=== PATIENT | female | born 1995 | race Caucasian/White ===

== ENCOUNTER 2018-03-18 07:28 | Inpatient (IN) ==
[2018-03-18] MEDS ORDERED: Naloxone 0.4 MG/ML INJ IVP PRN (07:43)
[2018-03-18] MEDS ORDERED: Famotidine 20 MG/2 ML VIAL IVP PRN (07:43)
[2018-03-18] MEDS ORDERED: *HR* Nalbuphine 10 MG/ML AMPUL IVP PRN (07:43)
[2018-03-18] MEDS ORDERED: Metoclopramide 10 MG/2 ML VIAL IVP PRN (07:43)
[2018-03-18] MEDS ORDERED: Ondansetron 4 MG/2 ML VIAL IVP PRN (07:43)
[2018-03-18] MEDS ORDERED: Ringers Solution, Lactated 1,000 ML IVC SCH (07:45)
[2018-03-18] MEDS ORDERED: Oxytocin 20 units/ LR 1000 mL 20 UNIT/1,000 ML BAG IVC SCH ×2 (08:30→16:12)
[2018-03-18 08:32] LABS: Basophils % 0.3 %; Eosinophils # 0.1 K/mcL (0.0-0.6); Eosinophils % 1.1 %; Hematocrit 35.8 % (35.3-44.9); Hemoglobin 12.7 g/dL (11.5-15.4); Immature Granulocytes % 1.1 % (0-4); Lymphocytes # 1.3 K/mcL (0.6-4.6); Lymphocytes % 16.2 %; Mean Corpuscular HGB Conc 35.5 g/dL (31.6-35.5); Mean Corpuscular Hemoglobin 31.4 pg (28.0-33.3); Mean Corpuscular Volume 88.6 fL (83.0-100.0); Mean Platelet Volume 10.5 fL (9.4-12.4); Monocytes # 0.7 K/mcL (0.0-1.3); Monocytes % 9.1 %; Neutrophils # 5.7 K/mcL (1.6-8.9); Platelet Count 151 K/mcL (140-400); Red Blood Count 4.04 M/mcL (3.82-4.97); Red Cell Distribution Width 12.5 % (11.5-14.5); Segmented Neutrophils % 72.2 %
[2018-03-18 08:41] LABS: Amphetamine Screen,Urine Negative ng/mL (Cutoff=1000); Barbiturate Screen,Urine Negative ng/mL (Cutoff=200); Benzodiazepines Screen,Urine Negative ng/mL (Cutoff=200); Cannabinoid Screen,Urine Positive ng/mL (Cutoff = 50); Cocaine Screen,Urine Negative ng/mL (Cutoff= 300); Opiate Screen,Urine Negative ng/mL (Cutoff=300); Phencyclidine Screen,Urine Negative ng/mL (Cutoff=25)
[2018-03-18] MEDS ORDERED: *HR* FentaNYL (PF) 100 MCG/2 ML VIAL EP ONE (08:41)
[2018-03-18] MEDS ORDERED: Bupivacaine-MPF 0.25% 10 ML VIAL EP ONE (08:41)
[2018-03-18] MEDS ORDERED: Epidural Premix (fent/bupiv) 110 ML EP SCH (08:45)
--- NOTE | 2018-03-18 08:45 | Anesthesia Evaluation PreOp ---
Date of Encounter: 03/18/18 Time of Encounter: 08:43 - Past History Planned Operation: WILMER Cardiac History: Denies any Significant Hx Pulmonary History: Smoker, Pack/yr (8) SURFACE SUPPLY BREATHING APPARATUS History: Denies Any Significant HX Other Medical History: Denies Any Significant HX Anesthesia History: No Prior Anesthetic Complications (previous WILMER x 1 w/out complications; never had any procedure requiring GA; Denies family h/o GA compications) : Yes Alcohol Use: none Drug use: none Medications and Allergies 3 Allergy/AdvReac Type Severity Reaction Status Date / Time Penicillins [PCN] Allergy Rash Verified 03/13/15 15:30 - Meds/Allergy Pre-op Review Medications Reviewed: Yes Allergies Reviewed: Yes Beta Blockers on Current Med List: No Anesthesia Results - Labs 03/18/18 07:45 Anesthesia Exam 124/78, HR 104 O2 Sat Height 1.68 m Weight 84.822 kg NPO (# of Hours): solids > 8hrs Pain Scale: 7 Pain Scale Used: Numeric (1 - 10) - HEENT Pupil (Motor): Pupils equal Mallampati: III Teeth: Normal Oral Opening: Greater than 3 - SURFACE SUPPLY BREATHING APPARATUS LOC: Oriented SURFACE SUPPLY BREATHING APPARATUS Motor: Normal RUE, Normal LUE, Normal RLE, Normal LLE, Normal Face SURFACE SUPPLY BREATHING APPARATUS Sensory: Normal: RUE, LUE, RLE, LLE, Face - Cardiac Rhythm: Regular Murmur: None - Pulmonary Breath Sounds: bilateral Clear Respiratory Effort: Symmetrical Anesthesia Assess/Plan ASA Score: 2 Modified [place] Scale for Level of Consciousness: Cooperative, oriented, and tranquil Anesthetic Plan: Regional Autologous Blood: No Recovery Plan: Other
[2018-03-18] MEDS ORDERED: Bupivacaine-MPF 0.25% 10 ML VIAL ONE (08:48)
[2018-03-18] MEDS ORDERED: Lidocaine -MPF 1% 5 ML AMPUL ONE (08:48)
[2018-03-18] MEDS ORDERED: *HR* FentaNYL (PF) 100 MCG/2 ML VIAL ONE (08:49)
--- NOTE | 2018-03-18 11:00 | Anesthesia Procedures ---
Date of Encounter: 03/18/18 Time of Encounter: 10:35 Procedures: Anesthesia - Epidural/Spinal Patient ID/Chart reviewed: Yes Patient examined: Yes OB Eval: Gestational age: 39 weeks 6 days OB Eval: : 2 OB Eval: Hx Para: 1 OB Eval: Dilated at (cm): 4 OB Eval: Contractions: Non-stressed pattern Consent Obtained: Yes Supplemental Oxygen: None/Room Air Site Prep: Aseptic Technique, Sterile prep and drape, Povidone-Iodine 1% Patient position: upright Local Anesthetic: Lidocaine 1% Amount of Local Anesthetic used: 3 Touhy Needle Gauge: 18 Touhy Needle Depth (cm): 6 Catheter Depth at Skin (cm): 11 Test Dose (1.5% Lido + Epi): Volume given (mls): 5 Test Dose Result: Negative Loading Dose: 0.25% Marcaine (mls): 5 Loading Dose: Fentanyl (mcg): 100 Loading Dose Administered: Thru Catheter Infusion Med: 0.125% Bupivacaine w/ 2 mcg/ml Fentanyl Infusion Rate (mls/hr): 14 (w/ demand bolus of 5mL q30min PRN) Catheter Secured in Place: Tegaderm, Tape Interspace Used: L4-L5 Loss of Resistance (NEYMAR): Yes Blood: No CSF: No Paresthesia: No Procedure: successful on 1st attempt; patient tolerated procedure well. VSS Vitals + FHT's: Please see Avril Plascencia RN's electronic records for vital sign entry
--- NOTE | 2018-03-18 14:00 | OB/GYN Procedure Note ---
Delivery - Delivery Date: 03/18/18 Provider: Gennaro Leung Intrapartum events: none Delivery induction: none Delivery augmentation: pitocin Delivery monitor: external FHT, external uterine Anesthesia: epidural Quantitated Blood Loss: 300 - (s) Infant A Delivery Date: 03/18/18 Infant Delivery Time: 13:42 Presentation: vertex Position: OA Route of delivery: Gender: Male Viability: Viable Pounds: 8 Ounces: 12 Weight Gram: 3.96 kg at 1 minute: 5 at 5 mins: 7 Shoulder Dystocia: encountered Shoulder Dystocia Maneuvers: Sana maneuver, suprapubic pressure, Rae maneuver Shoulder dystocia time elapsed: 2 min Specimens collected: cord blood, venous cord gases, arterial cord gases Placenta: spontaneous Cord: nuchal cord, nuchal reduced - Repair Laceration Description: None - Disposition Mom disposition: stable in LDR [place] disposition: taken to nursery - Comments Comments: Sarina is a 22-year-old female who presented to labor and delivery with spontaneous rupture membranes at 39+ weeks. She progressed to complete and pushing. Infant's head descended rapidly. We then had a shoulder dystocia with the consented occipitoanterior presentation. There was a cord around the neck 1 which is easily reduced. Nursing was notified of shoulder dystocia. Immediately patient was placed in Sana maneuver and suprapubic pressure was applied. Infant did not reduce with this. This was tried twice. At this point I tried a Hever maneuver releasing the superior shoulder. It did not release. I then went after the posterior arm. I was able to reduce the shoulder which relieved the pressure on the anterior shoulder allowing me to deliver the baby. NICU team had been called to delivery when shoulder dystocia was noted. Interval time was 2 minutes from noting the dystocia until delivery. Cord was clamped and cut with delivery of infant. was responding at this point and placed on the bassinet with NICU team. Baby did cry at this point. Cord blood and gases were obtained. Placenta was delivered spontaneously intact. There were no cervical, vaginal, periurethral or perineal lacerations noted. Patient delivered a male weight was 8 lbs. 12 oz. 3960 g. Apgars were 5 at 1 minute and 7 at 5 minutes. Estimated blood loss 300 mL.
--- NOTE | 2018-03-18 14:07 | History & Physical Report ---
Date of Encounter: 03/18/18 Time of Encounter: 14:06 24 Hour HP Update - Instructions Instructions: If the History and Physical is less than 30 days old and was completed prior to A.M. admission and or procedure and has NOT been updated on calendar day of procedure please complete this update prior to performing procedure. - Update Patient reports changes in Medical Condition: No Changes in examination, assessment, or condition: No Changes in Medication: No Surgery Remains Indicated: No Consent for Planned Operative Procedure(s) Verified: No - Pre-Operative Checklist Preoperative Checklist Indicated: No Prophylactic Antibiotic Ordered: No Home Medications Include Beta Vickie: No Beta Vickie Taken Today (Day of Surgery): No Beta Vickie Taken Yesterday (Day Prior to Surgery): No Is VTE Prophylaxis Indicated?: NO - Attending Attestation Patient presented with spontaneous rupture of membranes. No change in patient' s history of physical has occurred since her visit in the office on Sunday.
[2018-03-18] MEDS ORDERED: Ibuprofen 600 MG TABLET PO PRN (16:12)
[2018-03-18] MEDS ORDERED: Acetaminophen 325 MG TABLET PO PRN (16:12)
[2018-03-18] MEDS ORDERED: Measles/Mumps/Rubella Vacc 0.5 ML VIAL SQ PRN (16:12)
[2018-03-19 06:03] LABS: Basophils % 0.3 %; Eosinophils # 0.1 K/mcL (0.0-0.6); Eosinophils % 0.5 %; Hematocrit 32.3 % (35.3-44.9); Hemoglobin 11.3 g/dL (11.5-15.4); Immature Granulocytes % 0.9 % (0-4); Lymphocytes # 1.3 K/mcL (0.6-4.6); Lymphocytes % 12.7 %; Mean Corpuscular Hemoglobin 30.9 pg (28.0-33.3); Mean Corpuscular Volume 88.3 fL (83.0-100.0); Mean Platelet Volume 10.1 fL (9.4-12.4); Monocytes # 0.8 K/mcL (0.0-1.3); Monocytes % 7.5 %; Neutrophils # 8.2 K/mcL (1.6-8.9); Platelet Count 128 K/mcL (140-400); Red Blood Count 3.66 M/mcL (3.82-4.97); Red Cell Distribution Width 12.5 % (11.5-14.5); Segmented Neutrophils % 78.1 %
--- NOTE | 2018-03-19 07:02 | OB/GYN Progress Note ---
Date of Encounter: 03/19/18 Time of Encounter: 07:00 - Assessment and Plan (1) 39 weeks gestation of Current Visit: Yes Status: Acute (2) Shoulder dystocia, delivered, current hospitalization Current Visit: Yes Status: Acute (3) (spontaneous vaginal delivery) Current Visit: No Status: Acute Subjective - Subjective Principal diagnosis: s/p Interval history: Sarina is a 22-year-old female who presented with spontaneous rupture membranes. This patient progressed pushing had a 2 minute shoulder dystocia. For was delivered following the protocols for delivery of shoulder dystocia. Infant doing well today. Had Apgars of 5 at 1 minute 7 at 5 minutes. Today baby in room with mother doing well. Nursing discussing him going home after 24 hours. Baby is nursing well. Mom feeling great today. No complaints of any kind. Wishes to go home today. Patient reports: appetite normal, voiding normally, pain well controlled, ambulating normally : doing well Objective - Latest Vital Signs Latest vital signs: Vital Signs Temp Pulse Resp BP Pulse Ox 03/19/18 03:05 98.6 F 97 16 124/84 96 03/18/18 20:05 98.5 F 89 14 125/83 97 03/18/18 18:03 98.4 F 81 17 122/73 98 03/18/18 17:00 98.5 F 79 18 121/77 97 03/18/18 16:03 97.8 F 92 16 119/74 96 Intake and Output 03/18/18 03/18/18 03/19/18 15:59 23:59 07:59 Intake Total 200 / 200 Output Total 550 / 550 1500 / 1500 Balance -350 / -350 -1500 / -1500 Intake: Oral 200 / 200 Output: Urine 550 / 550 1500 / 1500 Other: Meal Dinner Percent of Meal Consumed 50% Weight 81.8 kg - Exam Lungs: bilateral: normal Extremities: Present: normal Abdomen: Present: normal appearance, soft Uterus Position: 3 Fingers Below Umbilicus - Labs Labs: Laboratory Results - last 24 hr 03/18/18 03/18/18 03/19/18 07:45 07:45 05:42 WBC 7.9 10.5 RBC 4.04 3.66 L Hgb 12.7 11.3 L Hct 35.8 32.3 L MCV 88.6 88.3 MCH 31.4 30.9 MCHC 35.5 35.0 RDW 12.5 12.5 Plt Count 151 128 L MPV 10.5 10.1 Immature Gran % 1.1 0.9 Seg Neutrophils % 72.2 78.1 Lymphocytes % 16.2 12.7 Monocytes % 9.1 7.5 Eosinophils % 1.1 0.5 Basophils % 0.3 0.3 Neutrophils # 5.7 8.2 Lymphocytes # 1.3 1.3 Monocytes # 0.7 0.8 Eosinophils # 0.1 0.1 Basophils # 0.0 0.0 Urine Opiates Screen Negative Ur Barbiturates Screen Negative Ur Phencyclidine Scrn Negative Ur Amphetamines Screen Negative U Benzodiazepines Scrn Negative Urine Cocaine Screen Negative U Marijuana (THC) Screen Positive H Ur Drug Screen Interp See Below
--- NOTE | 2018-03-19 07:23 | OB/GYN History & Physical ---
Date of Encounter: 03/18/18 Time of Encounter: 08:00 Assessment and Plan (1) 39 weeks gestation of Current visit: Yes Status: Acute (2) Shoulder dystocia, delivered, current hospitalization Current visit: Yes Status: Acute (3) (spontaneous vaginal delivery) Current visit: No Status: Acute History of Present Illness Chief complaint: in labor HPI: Ms. Pressley is a 22 year old female who presents to labor and delivery with spontaneous rupture membranes at 39 weeks. She did not scheduled for induction of labor. Patient presented bharat. She is 3 cm upon presentation. She denies any complaints of any kind today. She denies any problems her breasts. She denies gynecologic infection or discharge. She is having no bleeding. She is having no problems with her bowels or bladder. She has allergies to penicillin. Current medications include vitamins. She has no chronic medical conditions. Surgical history is negative. She has no history of abnormal Pap smears, STDs or pelvic infections. She has no history of abnormal breast findings. Socially she smokes half a pack a day. She denies alcohol or illicit drug use. Family history significant for mother diabetes and hypertension; great grandmother with breast cancer. Obstetric history significant for one term vaginal delivery uncomplicated. Past Med Surg Social Fam HX - Past Medical History Medical history: no medical history, thyroid disease Additional medical history: DRUG ABUSE, OVERDOSE, ANXIETY, CHILD , Psychiatric history: anxiety, depression - Past Surgical History Surgical History: no surgical history - Social History Smoking Status: Current every day smoker Smokeless Tobacco Status: No Alcohol use: none Drug use: none - Family History Mother Name: Carlene Rodrigues Living Status: Still Living Hx Family Endocrine Disorder: Yes (DM) Obstetrical History - Pregnancies : 2 Para: 1 Medications and Allergies 3 Allergy/AdvReac Type Severity Reaction Status Date / Time Penicillins [PCN] Allergy Rash Verified 03/13/15 15:30 Exam - Vital Signs Vital signs: Initial Vital Signs Temp Pulse Resp BP Pulse Ox 97.8 F 92 16 119/74 96 03/18/18 16:03 03/18/18 16:03 03/18/18 16:03 03/18/18 16:03 03/18/18 16:03 - Constitutional Constitutional: well developed, well nourished, no acute distress, average body habitus - HEENT HEENT: PERRL - Neck Neck exam: full ROM - Lungs Respiratory exam: CTAB - Cardiovascular Cardiovascular exam: RRR - Abdomen Abdomen: Present: bowel sounds normal, gravid, non tender - Extremities Extremities exam: full ROM, normal capillary refill, normal inspection - Vagina Vagina: Present: normal moisture - Uterus Uterus exam: Present: normal size Results Result Diagrams: 03/19/18 05:42 Abnormal lab results RBC 3.66 M/mcL (3.82-4.97) L 03/19/18 05:42 Hgb 11.3 g/dL (11.5-15.4) L 03/19/18 05:42 Hct 32.3 % (35.3-44.9) L 03/19/18 05:42 Plt Count 128 K/mcL (140-400) L 03/19/18 05:42 U Marijuana (THC) Screen Positive ng/mL (Cutoff = 50) H 03/18/18 07:45 All other labs normal. - VTE Reasons for not Prescribing Prophylaxis: Treatment not Indicated - Low risk for VTE
--- NOTE | 2018-03-19 07:26 | Discharge Summary ---
Date of Encounter: 03/19/18 Time of Encounter: 07:10 - Discharge Diagnosis (1) 39 weeks gestation of Priority: Secondary Status: Acute (2) Shoulder dystocia, delivered, current hospitalization Priority: Secondary Status: Acute (3) (spontaneous vaginal delivery) Priority: Primary Status: Acute - Discharge Medications Allergies/Adverse Reactions: 3 Allergy/AdvReac Type Severity Reaction Status Date / Time Penicillins [PCN] Allergy Rash Verified 03/13/15 15:30 Data Procedures and tests throughout hospitalization: Laboratory Tests 03/18/18 03/18/18 03/19/18 07:45 07:45 05:42 WBC 7.9 10.5 RBC 4.04 3.66 L Hgb 12.7 11.3 L Hct 35.8 32.3 L MCV 88.6 88.3 MCH 31.4 30.9 MCHC 35.5 35.0 RDW 12.5 12.5 Plt Count 151 128 L MPV 10.5 10.1 Immature Gran % 1.1 0.9 Seg Neutrophils % 72.2 78.1 Lymphocytes % 16.2 12.7 Monocytes % 9.1 7.5 Eosinophils % 1.1 0.5 Basophils % 0.3 0.3 Neutrophils # 5.7 8.2 Lymphocytes # 1.3 1.3 Monocytes # 0.7 0.8 Eosinophils # 0.1 0.1 Basophils # 0.0 0.0 Urine Opiates Screen Negative Ur Barbiturates Screen Negative Ur Phencyclidine Scrn Negative Ur Amphetamines Screen Negative U Benzodiazepines Scrn Negative Urine Cocaine Screen Negative U Marijuana (THC) Screen Positive H Ur Drug Screen Interp See Below Labs on day of discharge: Labs from last 24 hours 03/19/18 03/18/18 03/18/18 05:42 07:45 07:45 WBC 10.5 7.9 RBC 3.66 L 4.04 Hgb 11.3 L 12.7 Hct 32.3 L 35.8 MCV 88.3 88.6 MCH 30.9 31.4 MCHC 35.0 35.5 RDW 12.5 12.5 Plt Count 128 L 151 MPV 10.1 10.5 Immature Gran % 0.9 1.1 Seg Neutrophils % 78.1 72.2 Lymphocytes % 12.7 16.2 Monocytes % 7.5 9.1 Eosinophils % 0.5 1.1 Basophils % 0.3 0.3 Neutrophils # 8.2 5.7 Lymphocytes # 1.3 1.3 Monocytes # 0.8 0.7 Eosinophils # 0.1 0.1 Basophils # 0.0 0.0 Urine Opiates Screen Negative Ur Barbiturates Screen Negative Ur Phencyclidine Scrn Negative Ur Amphetamines Screen Negative U Benzodiazepines Scrn Negative Urine Cocaine Screen Negative U Marijuana (THC) Screen Positive H Ur Drug Screen Interp See Below Date of admission: 03/18/18 07:28 Primary care physician: PCP NONE Consults: 03/18/18 16:12 Consult to Machine Icer [CONS] Routine Comment: Vaginal delivery, consult needed Discharging clinician: Gennaro Leung - Patient Status Disposition: Home, Self-Care Condition: Good Functional capacity at discharge: independent ambulation Overall status at discharge: patient is back to baseline - Discharge Instructions Follow Up With: NONE,PCP [Primary Care Provider] - - Diet and Activity Activity: increase activity as tolerated Diet: advance to your usual diet 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 Time spent discussing smoking cessation with patient: more than 10 minutes Time Attestation: Total time spent providing and/or coordinating discharge services: Exam - Constitutional Vitals: Temp Pulse Resp BP Pulse Ox 98.6 F 97 16 124/84 96 03/19/18 03:05 03/19/18 03:05 03/19/18 03:05 03/19/18 03:05 03/19/18 03:05 General appearance IM: A&O X 3 - Respiratory Respiratory exam: Present: CTAB - Cardiovascular Cardiovascular exam IM: Present: RRR - GI/Abdominal GI/Abdominal exam IM: no peritoneal signs - Rectal Rectal exam: deferred - External exam: normal external exam Uterus Position: 3 Fingers Below Umbilicus - Extremities Exam Extremities exam IM: Present: full ROM, normal capillary refill - VTE Reasons for not Prescribing Prophylaxis: Treatment not Indicated - Low risk for VTE
[2018-03-19 07:58] VITALS: BP 111/72
[2018-03-19] MEDS ORDERED: Prenatal Vit/FA 1 EACH TABLET PO SCH (09:00)
== END 2018-03-19 10:00 | disposition home or self-care (01) | DRG 560 ==
LOC: 1NENULAB 07:28 → 1NENUOBS 16:03
PROVIDERS: ADMIT Obstetrics & Gynecology; ATTEND Obstetrics & Gynecology

== ENCOUNTER 2020-05-24 04:00 | Inpatient (IN) ==
[2020-05-24] MEDS ORDERED: *HR* FentaNYL (PF) 100 MCG/2 ML VIAL IVP PRN (04:19)
[2020-05-24] MEDS ORDERED: Metoclopramide 10 MG/2 ML VIAL IVP PRN (04:19)
[2020-05-24] MEDS ORDERED: Lidocaine 1% 20 ML MDV INFILT PRN (04:19)
[2020-05-24] MEDS ORDERED: Naloxone 0.4 MG/ML INJ IVP PRN (04:19)
[2020-05-24] MEDS ORDERED: Ondansetron 4 MG/2 ML VIAL IVP PRN (04:19)
[2020-05-24] MEDS ORDERED: Famotidine 20 MG/2 ML VIAL IVP PRN (04:19)
[2020-05-24] MEDS ORDERED: Azithromycin 500 MG in 0.9 % Sodium Chloride 250 ML IVPB ONE (04:19)
[2020-05-24] MEDS ORDERED: Ringers Solution, Lactated 1,000 ML IVC SCH (04:30)
[2020-05-24] MEDS ORDERED: Oxytocin 20 units/ LR 1000 mL 20 UNIT/1,000 ML BAG IVC SCH ×2 (04:30→23:25)
[2020-05-24 04:57] LABS: Basophils % 0.2 %; Eosinophils # 0.2 K/mcL (0.0-0.6); Eosinophils % 1.5 %; Hematocrit 37.3 % (35.3-44.9); Hemoglobin 12.8 g/dL (11.5-15.4); Immature Granulocytes % 0.7 % (0-4); Lymphocytes # 1.9 K/mcL (0.6-4.6); Lymphocytes % 18.7 %; Mean Corpuscular HGB Conc 34.3 g/dL (31.6-35.5); Mean Corpuscular Hemoglobin 30.5 pg (28.0-33.3); Mean Platelet Volume 10.3 fL (9.4-12.4); Monocytes # 0.8 K/mcL (0.0-1.3); Monocytes % 7.8 %; Neutrophils # 7.2 K/mcL (1.6-8.9); Platelet Count 167 K/mcL (140-400); Red Blood Count 4.19 M/mcL (3.82-4.97); Red Cell Distribution Width 13.2 % (11.5-14.5); Segmented Neutrophils % 71.1 %; White Blood Count 10.1 K/mcL (4.3-11.1)
[2020-05-24 05:02] LABS: Amphetamine Screen,Urine Negative ng/mL (Cutoff=1000); Barbiturate Screen,Urine Negative ng/mL (Cutoff=200); Benzodiazepines Screen,Urine Negative ng/mL (Cutoff=200); Cannabinoid Screen,Urine Negative ng/mL (Cutoff = 50); Cocaine Screen,Urine Negative ng/mL (Cutoff= 300); Opiate Screen,Urine Negative ng/mL (Cutoff=300); Phencyclidine Screen,Urine Negative ng/mL (Cutoff=25)
[2020-05-24 05:14] LABS: Alanine Aminotransferase 8 Units/L (7-52); Aspartate Amino Transferase 20 Units/L (13-39); BUN/Creatinine Ratio 13 (6-26); Blood Urea Nitrogen 6 mg/dL (6-20); Lactate Dehydrogenase 170 Units/L (140-271); Uric Acid 4.6 mg/dL (2.3-7.6); eGFR For African Americans > 60 (> 60); eGFR For Non-African Americans > 60 (> 60)
[2020-05-24] MEDS ORDERED: EPHEDrine 50 MG/ML VIAL IVP PRN (06:58)
[2020-05-24 07:09] LABS: Creatinine,Urine 27 mg/dL; Protein/Creatinine Ratio,Urine 0.26 mg/mg (0.00-0.20)
[2020-05-24] MEDS: Epidural Premix (fent/bupiv) 110 ML EP SCH ×2 (09:15→16:24)
[2020-05-24] MEDS ORDERED: Acetaminophen 325 MG TABLET PO PRN ×2 (12:25→23:25)
[2020-05-24] MEDS ORDERED: Ropivacaine/PF 0.2% 20 ML VIAL ONE (17:51)
[2020-05-24] MEDS ORDERED: Lidocaine/EPI 1:200k 2% PF 20 ML VIAL ONE (17:51)
[2020-05-24] MEDS ORDERED: *HR* FentaNYL (PF) 100 MCG/2 ML VIAL ONE (17:51)
[2020-05-24] MEDS ORDERED: Ibuprofen 600 MG TABLET PO PRN (23:25)
[2020-05-24] MEDS ORDERED: Measles/Mumps/Rubella Vacc 0.5 ML VIAL SQ PRN (23:25)
[2020-05-25 06:04] LABS: Basophils % 0.2 %; Eosinophils # 0.1 K/mcL (0.0-0.6); Eosinophils % 0.5 %; Hematocrit 32.7 % (35.3-44.9); Immature Granulocytes % 0.4 % (0-4); Lymphocytes # 1.4 K/mcL (0.6-4.6); Lymphocytes % 12.1 %; Mean Corpuscular HGB Conc 33.6 g/dL (31.6-35.5); Mean Corpuscular Hemoglobin 30.3 pg (28.0-33.3); Mean Corpuscular Volume 90.1 fL (83.0-100.0); Mean Platelet Volume 10.7 fL (9.4-12.4); Monocytes # 0.9 K/mcL (0.0-1.3); Monocytes % 8.3 %; Neutrophils # 8.8 K/mcL (1.6-8.9); Platelet Count 156 K/mcL (140-400); Red Blood Count 3.63 M/mcL (3.82-4.97); Red Cell Distribution Width 13.2 % (11.5-14.5); Segmented Neutrophils % 78.5 %; White Blood Count 11.2 K/mcL (4.3-11.1)
[2020-05-25] MEDS ORDERED: Prenatal Vit/FA 1 EACH TABLET PO SCH (09:00)
[2020-05-25] MEDS ORDERED: PRENATAL 1 MG PO SCH (09:00)
[2020-05-25 21:03] VITALS: BP 119/80
== END 2020-05-25 21:40 | disposition home or self-care (01) | DRG 560 ==
LOC: 1NENULAB 04:18 → 1NENUOBS 22:34
PROVIDERS: ADMIT Obstetrics & Gynecology; ATTEND Obstetrics & Gynecology